=== PATIENT | male | born 1940 | race Asian ===

== ENCOUNTER 2018-04-04 16:48 | Observation (INO) | payer MEDICARE, BC ==
--- NOTE | 2018-04-04 17:20 | RADIOLOGY REPORT (SQ) ---
EXAM DESCRIPTION: CT HEAD WITHOUT COMPLETED DATE/TIME: 04/04/2018 5:06 pm REASON FOR STUDY: Stroke-like symptoms COMPARISON: 2012. TECHNIQUE: Axial images acquired through the brain without intravenous contrast. Images reviewed wi th bone, brain and subdural windows. Additional sagittal and coronal reconstructions were generated. Images stored on PACS. All CT scanners at this facility use dose modulation, iterative reconstruction, and/or weight based d osing when appropriate to reduce radiation dose to as low as reasonably achievable (ALARA). [facility]: Dose Right [facility]: CareDose [facility]: Dose Right [facility]: Teradose 4D [facility]: Smart Technologies RADIATION DOSE: CT Rad equipment meets quality standard of care and radiation dose reduction techniq ues were employed. CTDIvol: 53.2 mGy. DLP: 1124 mGy-cm. mGy. LIMITATIONS: None. FINDINGS: VENTRICLES: Slight prominence, chronic. No developing or progressive hydrocephalus. CEREBRUM: No masses. No hemorrhage. No midline shift. No evidence for acute infarction. Minimal sm all vessel disease, chronic. CEREBELLUM: No masses. No hemorrhage. No alteration of density. No evidence for acute infarction. EXTRAAXIAL SPACES: No fluid collections. No masses. ORBITS AND GLOBE: No intra- or extraconal masses. Normal contour of globe without masses. CALVARIUM: No fracture. PARANASAL SINUSES: No fluid levels. Mucosal thickening, most notable in the right maxillary sinus. SOFT TISSUES: No mass or hematoma. OTHER: No other significant finding. IMPRESSION: 1. No acute intracranial abnormality. 2. Mild chronic changes as above. EVIDENCE OF ACUTE STROKE: NO. Pertinent positive or negative findings of the imaging study reported as a CRITICAL EXAM to DEREK Matos NURSE at17:14 on 04/04/2018. Category of Critical Exam: Stroke alert COMMENT: Quality ID # [id number]: Final reports with documentation of one or more dose reduction techniques (e.g., Automated exposure control, adjustment of the mA and/or kV according to patient size, use of iterative reconstruction technique) TECHNICAL DOCUMENTATION: JOB ID: [id number] [employer]- All Rights Reserved Reading location - IP/workstation name: [email or web address]
--- NOTE | 2018-04-04 17:22 | RADIOLOGY REPORT (SQ) ---
EXAM DESCRIPTION: CHEST SINGLE VIEW COMPLETED DATE/TIME: 04/04/2018 5:04 pm REASON FOR STUDY: Stroke-like symptoms COMPARISON: 2012. NUMBER OF VIEWS: One view. TECHNIQUE: Single frontal radiographic view of the chest acquired. LIMITATIONS: None. FINDINGS: LUNGS AND PLEURA: No opacities, masses or pneumothorax. No pleural effusion. MEDIASTINUM AND HILAR STRUCTURES: No masses. Contour normal. HEART AND VASCULAR STRUCTURES: Heart normal in size. Normal vasculature. BONES: No acute findings. HARDWARE: None in the chest. OTHER: No other significant finding. IMPRESSION: NO SIGNIFICANT RADIOGRAPHIC FINDING IN THE CHEST. TECHNICAL DOCUMENTATION: JOB ID: [id number] [employer]- All Rights Reserved Reading location - IP/workstation name: [email or web address]
--- NOTE | 2018-04-04 17:27 | ER Document Report ---
ED Medical Screen (RME) - General Chief Complaint: S/S of Possible Stroke Stated Complaint: IRREGULAR HEARTBEAT Time Seen by Provider: 04/04/18 17:24 TRAVEL OUTSIDE OF THE [place] IN LAST 30 DAYS: No - HPI Notes: 04/04/18 17:25 Patient with a history of stroke irregular heartbeat takes Eliquis as needed whenever he has an irregular heartbeats that this afternoon felt palpitations took Eliquis started having hemianopsia of the left states resolved approximately 1 hour after taking Eliquis. Patient was seen by Dr. 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 Patient does have slurred speech from his previous stroke family at bedside states speech today is baseline. - Related Data Allergies/Adverse Reactions: No Known Drug Allergies Allergy (Verified 12/19/12 22:58) Past Medical History - Past Medical History Cardiac Medical History: Reports: Hx Atrial Fibrillation, Hx Hypertension Endocrine Medical History: Denies: Hx Diabetes Mellitus Type 1, Hx Diabetes Mellitus Type 2 Review of Systems - Review of Systems Constitutional: Other - Hemianopsia Physical Exam - Vital signs Vitals: Temp Pulse Resp BP Pulse Ox 98.8 F 80 16 135/90 H 97 04/04/18 16:58 04/04/18 16:58 04/04/18 16:58 04/04/18 16:58 04/04/18 16:58 - Neurological Neuro grossly intact: Yes Cognition: Normal Orientation: AAOx4 Devi Coma Scale Eye Opening: Spontaneous Devi Coma Scale Verbal: Oriented [place] Coma Scale Motor: Obeys Commands Devi Coma Scale Total: 15 Speech: Other - Slight slurring speech normal per family no abnormality Cranial nerves: Normal Cerebellar coordination: Normal Additional motor exam normals: 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 Slurred speech is chronic and stable according to family members at bedside. There is no facial asymmetry. There is no hemianopsia at this time. Equal strength left and right upper and lower extremities. - Vital Signs Vital signs: Temp Pulse Resp BP Pulse Ox 98.8 F 80 16 135/90 H 97 04/04/18 16:58 04/04/18 16:58 04/04/18 16:58 04/04/18 16:58 04/04/18 16:58 Doctor's Discharge - Discharge Referrals: HARRISON ANDERSON MD [Primary Care Provider] - Follow up as needed
[2018-04-04 17:31] LABS: ABSOLUTE BASOPHILS # (AUTO) 0.1 10^3/uL (0.0-0.2); ABSOLUTE EOSINOPHILS # (AUTO) 0.3 10^3/uL (0.0-0.6); ABSOLUTE MONOCYTES (AUTO) 0.7 10^3/uL (0.1-1.4); ABSOLUTE NEUT (AUTO) 5.6 10^3/uL (1.7-8.2); BASOPHILS % (AUTO) 0.9 % (0-2); EOSINOPHILS % (AUTO) 2.7 % (0-6); HEMATOCRIT 49.2 % (37.9-51.0); HEMOGLOBIN 16.9 g/dL (13.5-17.0); LYMPHOCYTES % (AUTO) 31.2 % (13-45); MEAN CORPUSCULAR HEMOGLOBIN 34.5 pg (27.0-33.4); MEAN CORPUSCULAR HGB CONC 34.5 g/dL (32.0-36.0); MEAN CORPUSCULAR VOLUME 100 fl (80-97); PLATELET COUNT 282 10^3/uL (150-450); RED BLOOD COUNT 4.92 10^6/uL (4.35-5.55); RED CELL DISTRIBUTION WIDTH 12.4 % (11.5-14.0); SEGMENTED NEUTROPHILS % (AUTO) 58.2 % (42-78); TOTAL CELLS COUNTED % (AUTO) 100 %; WHITE BLOOD COUNT 9.6 10^3/uL (4.0-10.5)
[2018-04-04 17:35] LABS: PROTHROMBIN TIME 13.7 SEC (11.4-15.4)
[2018-04-04 17:36] LABS: PARTIAL THROMBOPLASTIN TIME 34.4 SEC (23.5-35.8)
[2018-04-04 18:09] LABS: CREATINE KINASE MB 0.56 ng/mL (<4.55)
[2018-04-04 18:12] LABS: TROPONIN I < 0.012 ng/mL
--- NOTE | 2018-04-04 18:21 | ER Document Report ---
ED Neuro Symptoms/Deficit - General Chief Complaint: S/S of Possible Stroke Stated Complaint: IRREGULAR HEARTBEAT Time Seen by Provider: 04/04/18 17:24 Mode of Arrival: Ambulatory Information source: Patient Notes: Patient said at around 1230 this afternoon, while he was taking out the trash from his home, he noticed he could not see from the lateral upper part of the left eye. When he arrived in his house he took 5 mg of Eliquis. After around 2 hours as his symptoms completely resolved. He called his scagliola mechanic who told him to go to the emergency room. Currently patient is still asymptomatic in the emergency room. He denies any medical history apart from stroke 5 years ago. He said he is allergic to aspirin. TRAVEL OUTSIDE OF THE [place] IN LAST 30 DAYS: No - HPI Patient complains to provider of: Vision Changes Onset: This afternoon Awoke with symptoms: No Symptoms are: Intermittent episodes Duration: Gone now Quality of pain: No pain Severity: Mild Pain Level: 2 Context: None Loss of consciousness: No loss of consciousness Was STROKE ALERT Called: No Baseline Cognitive: Alert, oriented X 3 Baseline Gait: Walks w/o assistance Alert To: Name/Voice Patient Orientation: Person, Place, Time, Events Vision problem/glaucoma: Yes Associated symptoms: None Similar symptoms previously: No Recently seen / treated by doctor: No - Related Data Allergies/Adverse Reactions: aspirin Allergy (Verified 04/04/18 17:33) Anaphylaxis Penicillins Allergy (Verified 04/04/18 22:44) Anaphylaxis venom-honey bee Allergy (Verified 04/04/18 22:44) Anaphylaxis Past Medical History - Social History Smoking Status: Current Every Day Smoker Chew tobacco use (# tins/day): No Frequency of alcohol use: Occasional Drug Abuse: None Family History: Other - unable to obtain at this time Patient has suicidal ideation: No Patient has homicidal ideation: No - Past Medical History Cardiac Medical History: Reports: Hx Atrial Fibrillation, Hx Hypertension Endocrine Medical History: Denies: Hx Diabetes Mellitus Type 1, Hx Diabetes Mellitus Type 2 Renal/ Medical History: Denies: Hx Peritoneal Dialysis Review of Systems - Review of Systems Constitutional: denies: Chills, Fever EENT: No symptoms reported Cardiovascular: denies: Chest pain, Palpitations Respiratory: No symptoms reported Gastrointestinal: No symptoms reported Genitourinary: No symptoms reported Male Genitourinary: No symptoms reported Musculoskeletal: No symptoms reported Skin: No symptoms reported Hematologic/Lymphatic: No symptoms reported Neurological/Psychological: No symptoms reported -: Yes All other systems reviewed and negative Physical Exam - Vital signs Vitals: Temp Pulse Resp BP Pulse Ox 98.8 F 80 16 135/90 H 97 04/04/18 16:58 04/04/18 16:58 04/04/18 16:58 04/04/18 16:58 04/04/18 16:58 - General General appearance: Appears well, Alert In distress: None - HEENT Head: Normocephalic, Atraumatic Eyes: Normal Pupils: PERRL - Respiratory Respiratory status: No respiratory distress Chest status: Nontender Breath sounds: Normal Chest palpation: Normal - Cardiovascular Rhythm: Regular Heart sounds: Normal auscultation Murmur: No - Abdominal Inspection: Normal Distension: No distension Bowel sounds: Normal Tenderness: Nontender Organomegaly: No organomegaly - Back Back: Normal, Nontender - Extremities General upper extremity: Normal inspection, Nontender, Normal color, Normal ROM , Normal temperature General lower extremity: Normal inspection, Nontender, Normal color, Normal ROM , Normal temperature, Normal weight bearing. No: Patricio's sign - Neurological Neuro grossly intact: Yes Cognition: Normal Orientation: AAOx4 [place] Coma Scale Eye Opening: Spontaneous Devi Coma Scale Verbal: Oriented Devi Coma Scale Motor: Obeys Commands Devi Coma Scale Total: 15 Speech: Normal Motor strength normal: LUE, RUE, LLE, RLE Sensory: Normal - Psychological Associated symptoms: Normal affect, Normal mood - Skin Skin Temperature: Warm Skin Moisture: Dry Skin Color: Normal Course - Re-evaluation Re-evalutation: 04/04/18 19:34 I consulted the hospitalist supervisor home energy consultant Dr. Mckeon. He will admit patient to the hospital for further evaluation and management. - Vital Signs Vital signs: Temp Pulse Resp BP Pulse Ox 98.4 F 75 14 152/100 H 100 04/04/18 17:31 04/04/18 18:00 04/04/18 18:00 04/04/18 18:00 04/04/18 18:00 - Laboratory Result Diagrams: 04/04/18 17:15 04/04/18 18:45 Laboratory results interpreted by me: 04/04/18 17:15 MCV 100 H MCH 34.5 H - Diagnostic Test Radiology reviewed: Image reviewed, Reports reviewed - EKG Interpretation by Me EKG shows normal: Sinus rhythm Rate: Normal - 79 P Waves: LAE Heart block present: 1st Degree When compared to previous EKG there are: Changes noted Additional EKG results interpreted by me: 04/04/18 18:[address] and T wave changes. No STEMI. - Transfer of Care Notes: 04/04/18 18:20 TIA. Hypertension. Critical Care Note - Critical Care Note Total time excluding time spent on procedures (mins): 40 ED Alteplase Inc/Exc Criteria - Date/Time patient last known well: Date/Time: 04/04/2018 at 12:30. - Inclusion Criteria: 1: Patient presented to ED within 3 hours of acute ischemic stroke symptom onset ? -: No 2: Did baseline CT exclude intracranial hemorrhage and/or other risk factors? -: Yes 3: Is the age of the patient 18 years of age or greater? -: Yes : If any of the above questions are answered "NO" then stop, patient is not a candidate for Alteplase, : If all of the above questions are answered "YES" then continue with Exclusion Criteria. - Exclusion Criteria: 1: Is there evidence of intracranial hemorrhage on baseline CT? -: No 2: Is there suspicion of subarachnoid hemorrhage (even if CT negative)? -: No 3: Is there a history of serious head trauma, recent previous stroke or PA within 3 months? -: No 4: Does the patient have a clinical presentation consistent with PA or post-PA pericarditis? -: No 5: Is there history of intracranial hemorrhage? -: No 6: On repeated measurement is Systolic BP greater than 185mmHg or Diastolic BP greater that 110 mmHg and is aggressive treatment needed to reduce blood pressure to these limits (e.g. constant infusion of an anti-hypertensive)? -: No 7: Did the patient awake with stroke symptoms? -: No 8: Has the patient had a lumbar puncture or an arterial puncture at a non- compressile site within 7 days? -: No 9: With in the last 14 days did the patient have surgery or major trauma? -: No 10: Is the patient or less than 2 weeks? -: No 11: Was there any active bleeding or acute trauma? -: No 12: Does the patient have intracranial neoplasm, arteriovenous malformation or aneurysm? -: No 13: Does the patient have abnormal glucose (less than 50 or greater than 400mg/ dl)? Record glucose in Comment. -: No 14: Patient has rapidly improving symptoms at the time Alteplase is to be Administered. -: Yes 15: Does the patient have any risks for bleeding, including but not limited to: a.: Current use of Coumadin with PT greater than 15 seconds or INR greater than 1.7. b.: Current use of Pradaxa (Dabigatran). c.: Heparin administereed within the past 48 hours and PTT elevated. d.: Platelet count less than 100,000/mm. e.: Major surgery or serious trauma within 14 days. f.: Gastrointestinal or gynecological urinary bleeding within 14 days. g.: Myocardial Infarction (PA) within 3 months. : If the answer to any of the above questions is "YES" then stop, the patient is not a candidate for Alteplase. : If the answer to all of the above questions is "NO" then the patient may be eligible for the Administration of Alteplase. : If the patient is noted to have seizure activity at onset of Stroke symptoms; Consult Neurologist for further evaluation. - The patient is: -: Included and is eligible to receive Alteplase. *Initiate bed placement at higher level of care* --: No Reviewed risks & benefits of thrombolytic therapy: I have reviewed the risks and benefits of thrombolytic therapy with the patient and/or his/her family. -: Excluded and not eligible to receive Alteplase for the above exclusions. --: Yes -: Excluded and not eligible to receive Alteplase for other reasons (specify in comments): --: Yes - TIA - Diagnosis of TIA: -: Patient presented with transient symptoms that are now resolved and no other neurologic findings are currently present. List symptoms in comments. -: Patient is NOT a candidate for tPA. -: ____(put name in comment) has been consulted for admission and continued evaluation of risk factor assessment. ED NIH Stroke Scale - NIH Stroke Scale When completed:: Before Alteplase *: 1. NIH scale should be completed with appropriate accompanying assessment tools. *: 2. The NIH should reflect what the patient is capable of doing and should not be coached by the clinician. 1a. Level of Consciousness: 0=Alert;keenly responsive -: 1=Drowsy -: 2=Obtunded -: 3=Coma/unresponsive or reflex to noxious stimuli. 1a. Responses: 0 1b. Orientation Questions: a. What month is it? -: b. How old are you? -: 0=Answers both questions correctly. -: 1=Answers one question correctly or patient is intubated or has orotracheal trauma. -: 2=Answers neither question correctly. 1b. Responses: 0 1c. Response to commands: a. Open and close eyes? -: b. Healthcare Economics Manager and release hand? -: Credit is given despite weakness. Demonstration of task is permitted. Substitute command if hands cannot be used. -: 0=Performs both tasks correctly -: 1=Performs one task correctly -: 2=Performs neither task correctly 1c. Responses: 0 2. Gaze: Establish eye contact and instruct patient to "Follow my finger" -: 0=Normal -: 1=Partial gaze palsy. Gaze is abnormal in one or both eyes, but where forced deviation or total gaze paresis is not present. -: 2=Forced deviation or total gaze paresis. 2. Responses: 0 3. Visual Galan: Sees fingers in all four quadrants. -: 0=No visual loss. -: 1=Partial hemianopsia. -: 2=Complete hemianopsia. -: 3=Bilateral hemianopsia (including Cortical blindness) 3. Responses: 0 4. Facial Movement: Instruct patient to: -: a. Show me your teeth -: b. Raise your eyebrows -: c. Close your eyes -: d. Smile -: 0=Normal symmetrical movement -: 1=Minor paralysis (flattened nasolabial fold, asymmetry on smiling). -: 2=Partial paralysis (total or near total paralysis of lower face). -: 3=Complete paralysis of upper and lower face 4. Responses: 0 5. Motor functions (left arm): Alternate sides and extend each arm with palms down (90 degrees if sitting or 45 degrees for supine). -: 0=No drift;limb holds for full 10 seconds. -: 1=Drift; limb holds but drifts down before full 10 seconds, but does not hit bed. -: 2=Some effort against gravity; limb cannot get to or maintain position. -: 3=No effort against gravity; limb falls. -: 4=No movement. -: UN=Amputation, joint fusion, explain in comments. 5. Responses (left arm): 0 5. Motor Functions (right arm): Alternate sides and extend each arm with palms down (90 degrees if sitting or 45 degrees for supine). -: 0=No drift;limb holds for full 10 seconds. -: 1=Drift; limb holds but drifts down before full 10 seconds, but does not hit bed. -: 2=Some effort against gravity; limb cannot get to or maintain position. -: 3=No effort against gravity; limb falls. -: 4=No movement. -: UN=Amputation, joint fusion, explain in comments. 5. Responses (right arm): 0 6. Motor Functions (left leg): With patient lying supine, alternate sides and extend each leg (30 degrees always while supine). -: 0=No drift, leg holds position for full 5 seconds -: 1=Drift; leg falls before full 5 seconds but does not hit bed. -: 2=Some effort against gravity, leg falls to bed but some effort against gravity. -: 3=No effort against gravity, leg falls to bed immediately. -: 4=No movement. -: UN=Amputation, joint fusion; explain in comments. 6. Responses (left leg): 0 6. Motor Functions (right leg): With patient lying supine, alternate sides and extend each leg (30 degrees always while supine). -: 0=No drift, leg holds position for full 5 seconds -: 1=Drift; leg falls before full 5 seconds but does not hit bed. -: 2=Some effort against gravity, leg falls to bed but some effort against gravity. -: 3=No effort against gravity, leg falls to bed immediately. -: 4=No movement. -: UN=Amputation, joint fusion; explain in comments. 6. Responses (right leg): 0 7. Limb Ataxia: With eyes open instruct patient to: -: a. "Touch your finger to your nose". -: b. "Touch your heel to your jones" -: 0=Absent -: 1=Present in one limb. -: 2=Present in two limbs. -: UN=Amputation or joint fusion; explain in comments. 7. Responses: 0 8. Sensory: Test sensation using pinprick or noxious stimuli. Test as many body parts as possible. -: 0=Normal;no sensory loss -: 1=Mile to moderate sensory loss (patient feels pin prick but is less sharp on affected side). -: 2=Severe or total sensory loss. 8. Responses: 0 9. Best Language: Instruct patient to: -: a. "Describe what you see in this picture." -: b. "Name the items in this picture." -: c. "Read these sentences." -: 0=No aphasia, normal -: 1=Mild to moderate aphasia. -: 2=Severe aphasia -: 3=Mute, global aphasia, no usable speech or auditory comprehension. 9. Responses: 0 10. Articulation, Dysarthia: Instruct patient to: -: "Read these words" or "Repeat these words" -: 0=Normal -: 1=Mild to moderate; patient may slur some words but can be understood without difficulty. -: 2=Severe; patients speech so slurred as to be unintelligible in the absence of dysphasia. -: UN=Intubated or other physical barrier, explain in comments. 10. Responses: 0 11. Extinction or inattention: 0=No abnormality -: 1= Visual, tactile, auditory, spatial, or personal inattention or extinction to bilateral simulation in one or the sensory modalities. -: 2=Profound walter-inattention or walter-inattention to more than one modality; does not recognize own hand. 11. Responses: 0 Total Score: 0 Discharge - Discharge Clinical Impression: TIA (transient ischemic attack) Hypertension Qualifiers: Hypertension type: unspecified Qualified Code(s): I10 - Essential (primary) hypertension Condition: Stable Disposition: ADMITTED INPATIENT Admitting Provider: Dr Mckeon Unit Admitted: Telemetry
[2018-04-04] MEDS ORDERED: CLONIDINE HCL 0.1 MG TABLET PO ONE (18:40)
[2018-04-04 19:14] LABS: ALANINE AMINOTRANSFERASE 25 U/L (21-72); ALBUMIN 4.1 g/dL (3.5-5.0); ALKALINE PHOSPHATASE 86 U/L (38-126); ANION GAP 13 (5-19); ASPARTATE AMINO TRANSFERASE 23 U/L (17-59); BILIRUBIN,DIRECT 0.3 mg/dL (0.0-0.4); BILIRUBIN,TOTAL 0.3 mg/dL (0.2-1.3); BLOOD UREA NITROGEN 8 mg/dL (7-20); CALCIUM 9.2 mg/dL (8.4-10.2); CARBON DIOXIDE 24 mmol/L (22-30); CHLORIDE 106 mmol/L (98-107); CREATINE KINASE 78 U/L (55-170); GLUCOSE 101 mg/dL (75-110); POTASSIUM 4.4 mmol/L (3.6-5.0); SODIUM 143.3 mmol/L (137-145); TOTAL PROTEIN 7.4 g/dL (6.3-8.2)
[2018-04-04] MEDS ORDERED: ENOXAPARIN SODIUM INJ 40 MG/0.4 ML DISP.SYRIN SUBCUT ONE (21:00)
--- NOTE | 2018-04-04 21:21 | RADIOLOGY REPORT (SQ) ---
EXAM DESCRIPTION: MRI HEAD WITHOUT COMPLETED DATE/TIME: 04/04/2018 8:40 pm REASON FOR STUDY: Stroke workup COMPARISON: None. TECHNIQUE: Multiplanar imaging includes non-contrasted T1, T2, FLAIR, and diffusion with ADC map seq uences. Images stored on PACS. LIMITATIONS: None. FINDINGS: ANATOMY: No anomalies. Normal vascular flow voids. Pituitary fossa normal. CSF SPACES: Lateral ventricles are prominent. CEREBRUM: Mild cortical atrophy. There is no midline shift or mass effect. There is no hemorrhage. There are some small areas increased FLAIR and T2 signal in the periventricular region. POSTERIOR FOSSA: No signal alteration. No hemorrhage. No edema, masses or mass effect. Internal elif tory canals, cerebello-pontine angles, mastoids normal. DIFFUSION IMAGING: Negative for acute or sub-acute infarction. ORBITS: No masses. Globes normal. PARANASAL SINUSES: Mucous retention cysts in the right maxillary sinus. OTHER: No other significant finding. IMPRESSION: Involutional changes of aging with mild chronic microvascular ischemia and no acute intr acranial imaging findings. Right maxillary sinus disease. EVIDENCE OF ACUTE STROKE: NO. TECHNICAL DOCUMENTATION: JOB ID: [id number] [employer]- All Rights Reserved Reading location - IP/workstation name: [email or web address]
--- NOTE | 2018-04-04 21:24 | RADIOLOGY REPORT (SQ) ---
EXAM DESCRIPTION: MRA HEAD WITHOUT COMPLETED DATE/TIME: 04/04/2018 8:57 pm REASON FOR STUDY: Stroke workup COMPARISON: None. TECHNIQUE: Axial 3-D [id number] acquisition imaging performed through the brain in the area of t he la posta of [place]. Images reformatted using 3-D MIPS. LIMITATIONS: None. FINDINGS: SOURCE IMAGES: No unexpected findings on source images. No large masses. 3-D MIP: No aneurysm. No occlusions. No significant stenosis. OTHER: No other significant finding. IMPRESSION: NORMAL MRA OF THE MCGRATH OF CAR[place]OS. TECHNICAL DOCUMENTATION: JOB ID: [id number] [employer]- All Rights Reserved Reading location - IP/workstation name: [email or web address]
[2018-04-04] MEDS: ALPRAZOLAM 0.5 MG TABLET PO SCH (21:48)
[2018-04-04] MEDS ORDERED: MIRTAZAPINE 15 MG TABLET PO SCH (22:00)
--- NOTE | 2018-04-04 22:12 | EKG REPORT ---
SEVERITY:- ABNORMAL ECG - SINUS RHYTHM FIRST DEGREE AV BLOCK PROBABLE LEFT ATRIAL ABNORMALITY : Confirmed by: Chapo De Jesus 04-Apr-2018 22:12:22
[2018-04-05 05:50] LABS: ABSOLUTE BASOPHILS # (AUTO) 0.1 10^3/uL (0.0-0.2); ABSOLUTE EOSINOPHILS # (AUTO) 0.3 10^3/uL (0.0-0.6); ABSOLUTE LYMPHOCYTES (AUTO) 3.5 10^3/uL (0.5-4.7); ABSOLUTE MONOCYTES (AUTO) 0.8 10^3/uL (0.1-1.4); ABSOLUTE NEUT (AUTO) 4.8 10^3/uL (1.7-8.2); EOSINOPHILS % (AUTO) 3.4 % (0-6); HEMATOCRIT 49.8 % (37.9-51.0); LYMPHOCYTES % (AUTO) 36.8 % (13-45); MEAN CORPUSCULAR HGB CONC 34.1 g/dL (32.0-36.0); MEAN CORPUSCULAR VOLUME 100 fl (80-97); MONOCYTES % (AUTO) 8.6 % (3-13); PLATELET COUNT 253 10^3/uL (150-450); RED BLOOD COUNT 4.99 10^6/uL (4.35-5.55); RED CELL DISTRIBUTION WIDTH 12.7 % (11.5-14.0); SEGMENTED NEUTROPHILS % (AUTO) 50.2 % (42-78); TOTAL CELLS COUNTED % (AUTO) 100 %; WHITE BLOOD COUNT 9.5 10^3/uL (4.0-10.5)
--- NOTE | 2018-04-05 06:28 | PDOC H&P ---
History of Present Illness Admission Date/PCP: 04/04/18 19:34 EARNEST TABARES MD Patient complains of: Abnormal vision History of Present Illness: ROSALIE ASHFORD is a 77 year old male with a known past medical history of stroke 5 years ago with residual facial droop and slurred speech presenting to the emergency department secondary to abnormal vision. States while he was resting comfortably at home he started having inability to see peripherally out of his left eye. States at that time he took a friend's 5 mg of Eliquis and went back to bed. 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 States his vision has returned to its baseline. Head CT in ER was negative. Patient was found to have elevated blood pressure upon arrival as well. Past Medical History Cardiac Medical History: Reports: Atrial Fibrillation, Hypertension Neurological Medical History: Reports: Ischemic CVA Endocrine Medical History: Denies: Diabetes Mellitus Type 1, Diabetes Mellitus Type 2 Psychiatric Medical History: Denies: Depression Past Surgical History Past Surgical History: Reports: None Social History Information Source: Patient Lives with: Family Smoking Status: Former Smoker Frequency of Alcohol Use: Occasional Hx Recreational Drug Use: No Drugs: None Hx Prescription Drug Abuse: No - Advance Directive Resuscitation Status: Full Code Family History Family History: None, Other - unable to obtain at this time Parental Family History Reviewed: Yes Children Family History Reviewed: Yes Sibling(s) Family History Reviewed.: Yes Medication/Allergy Home Medications: Alendronate Sodium [Fosamax 70 mg Tablet] 70 mg PO GARCIAS@1000 04/04/18 Alprazolam [Xanax] 1 mg PO BID 04/04/18 Cholecalciferol (Vitamin D3) [Vitamin D3 2000 unit Tablet] 2,000 unit PO Q2DAYS 04/04/18 Flecainide Acetate 150 mg PO BID 04/04/18 Mirtazapine [Remeron 15 mg Tablet] 15 mg PO QHS 04/04/18 Allergies/Adverse Reactions: aspirin Allergy (Verified 04/04/18 17:33) Anaphylaxis Penicillins Allergy (Verified 04/04/18 22:44) Anaphylaxis venom-honey bee Allergy (Verified 04/04/18 22:44) Anaphylaxis Review of Systems Constitutional: PRESENT: as per HPI Eyes: PRESENT: visual disturbances Ears: ABSENT: hearing changes Cardiovascular: ABSENT: chest pain, orthropnea Gastrointestinal: ABSENT: abdominal pain Neurological: ABSENT: abnormal gait, confusion, focal weakness, numbness, weakness Physical Exam Vital Signs: Temp Pulse Resp BP Pulse Ox 98.0 F 57 L 19 94/54 L 98 04/05/18 03:22 04/05/18 04:00 04/05/18 04:00 04/05/18 04:00 04/05/18 04:00 Intake & Output 04/03/18 04/04/18 04/05/18 06:59 06:59 06:59 Intake Total 0 Output Total 400 Balance -400 Weight 66 kg General appearance: PRESENT: no acute distress, well-developed, well-nourished Head exam: PRESENT: atraumatic, normocephalic Eye exam: PRESENT: conjunctiva pink, EOMI, PERRLA. ABSENT: scleral icterus Ear exam: PRESENT: normal external ear exam Mouth exam: PRESENT: moist, tongue midline Neck exam: ABSENT: carotid bruit, JVD, lymphadenopathy, thyromegaly Respiratory exam: PRESENT: clear to auscultation adrianna. ABSENT: rales, rhonchi, wheezes Cardiovascular exam: PRESENT: RRR. ABSENT: diastolic murmur, rubs, systolic murmur Pulses: PRESENT: normal dorsalis pedis pul Vascular exam: PRESENT: normal capillary refill GI/Abdominal exam: PRESENT: normal bowel sounds, soft. ABSENT: distended, guarding, mass, organolmegaly, rebound, tenderness Rectal exam: PRESENT: deferred Extremities exam: PRESENT: full ROM. ABSENT: calf tenderness, clubbing, pedal edema Neurological exam: PRESENT: alert, awake, oriented to person, oriented to place , oriented to time, oriented to situation, CN II-XII grossly intact. ABSENT: motor sensory deficit Psychiatric exam: PRESENT: appropriate affect, normal mood. ABSENT: homicidal ideation, suicidal ideation Skin exam: PRESENT: dry, intact, warm. ABSENT: cyanosis, rash Results Laboratory Results: 04/05/18 03:46 04/05/18 03:46 04/05/18 04/05/18 03:46 03:46 WBC 9.5 RBC 4.99 Hgb 17.0 Hct 49.8 MCV 100 H MCH 34.0 H MCHC 34.1 RDW 12.7 Plt Count 253 Seg Neutrophils % 50.2 Lymphocytes % 36.8 Monocytes % 8.6 Eosinophils % 3.4 Basophils % 1.0 Absolute Neutrophils 4.8 Absolute Lymphocytes 3.5 Absolute Monocytes 0.8 Absolute Eosinophils 0.3 Absolute Basophils 0.1 Sodium Cancelled Potassium Cancelled Chloride Cancelled Carbon Dioxide Cancelled Anion Gap Cancelled BUN Cancelled Creatinine Cancelled Est GFR ( Amer) Cancelled Est GFR (Non-Af Amer) Cancelled Glucose Cancelled Calcium Cancelled Triglycerides Cancelled Cholesterol Cancelled LDL Cholesterol Direct Cancelled VLDL Cholesterol Cancelled HDL Cholesterol Cancelled Impressions: Head MRI 04/04/18 00:00 IMPRESSION: Involutional changes of aging with mild chronic microvascular ischemia and no acute intracranial imaging findings. Right maxillary sinus disease. EVIDENCE OF ACUTE STROKE: NO. Chest X-Ray 04/04/18 16:57 IMPRESSION: NO SIGNIFICANT RADIOGRAPHIC FINDING IN THE CHEST. Head CT 04/04/18 16:57 IMPRESSION: 1. No acute intracranial abnormality. 2. Mild chronic changes as above. EVIDENCE OF ACUTE STROKE: NO. Pertinent positive or negative findings of the imaging study reported as a CRITICAL EXAM to ER CHARGE NURSE at17:14 on 04/04/2018. Category of Critical Exam: Stroke alert Brain MRI with MRA 04/04/18 19:22 IMPRESSION: NORMAL MRA OF THE [place]. Assessment & Plan - Diagnosis (1) TIA (transient ischemic attack) Is this a current diagnosis for this admission?: Yes Plan: To be admitted to telemetry for further monitoring and evaluation. Head CT negative in ER, NIH scale 0. Patient appears to be alert oriented 3 with no focal deficit at this time. Brain MRI with MRA pending for this a.m. Physical therapy, occupational therapy pending. (2) Hypertension Qualifiers: Hypertension type: unspecified Qualified Code(s): I10 - Essential (primary ) hypertension Is this a current diagnosis for this admission?: Yes Plan: Continue patient's home medications and monitor closely. Will adjust accordingly. - Time Time Spent: 30 to 50 Minutes Medications reviewed and adjusted accordingly: Yes Anticipated discharge: Home
[2018-04-05 08:58] LABS: ANION GAP 12 (5-19); BLOOD UREA NITROGEN 8 mg/dL (7-20); CARBON DIOXIDE 24 mmol/L (22-30); CHLORIDE 107 mmol/L (98-107); GLUCOSE 103 mg/dL (75-110); POTASSIUM 4.2 mmol/L (3.6-5.0); SODIUM 143.3 mmol/L (137-145); TRIGLYCERIDES 350 mg/dL (<150)
[2018-04-05 09:09] LABS: DIRECT LDL 74 mg/dL (<100)
[2018-04-05] MEDS ORDERED: PANTOPRAZOLE SODIUM 40 MG VIAL IV SCH (10:00)
[2018-04-05] MEDS ORDERED: ENOXAPARIN SODIUM INJ 40 MG/0.4 ML DISP.SYRIN SUBCUT SCH (10:00)
[2018-04-05] MEDS: ALPRAZOLAM 0.5 MG TABLET PO SCH (10:32)
[2018-04-05] MEDS ORDERED: CLOPIDOGREL BISULFATE 75 MG TABLET PO SCH (11:00)
[2018-04-05] MEDS ORDERED: FENOFIBRATE NANOCRYSTALLIZED 145 MG TABLET PO SCH (11:30)
[2018-04-05 13:53] VITALS: BP 128/83
--- NOTE | 2018-04-05 14:21 | PDOC DISCHARGE SUMMARY ---
General - Admit/Disc Date/PCP Admission Date/Primary Care Provider: 04/04/18 19:34 EARNEST TABARES MD Discharge Date: 04/05/18 - Discharge Diagnosis (1) TIA (transient ischemic attack) Is this a current diagnosis for this admission?: Yes (2) Atrial fibrillation Is this a current diagnosis for this admission?: Yes (3) Dyslipidemia Is this a current diagnosis for this admission?: Yes (4) Old cerebrovascular accident without late effect Is this a current diagnosis for this admission?: Yes (5) Hypertension Is this a current diagnosis for this admission?: Yes - Additional Information Resuscitation Status: Full Code Discharge Diet: As Tolerated, Cardiac Discharge Activity: Activity As Tolerated Prescriptions: Atorvastatin Calcium [Lipitor 20 mg Tablet] 20 mg PO QHS #30 tablet Clopidogrel Bisulfate [Plavix 75 mg Tablet] 75 mg PO DAILY #30 tablet Fenofibrate Nanocrystallized [Tricor 145 mg Tablet] 145 mg PO DAILY #30 tablet Home Medications: Alendronate Sodium [Fosamax 70 mg Tablet] 70 mg PO GARCIAS@1000 04/04/18 Alprazolam [Xanax] 1 mg PO BID 04/04/18 Cholecalciferol (Vitamin D3) [Vitamin D3 2000 unit Tablet] 2,000 unit PO Q2DAYS 04/04/18 Flecainide Acetate 150 mg PO BID 04/04/18 Mirtazapine [Remeron 15 mg Tablet] 15 mg PO QHS 04/04/18 Atorvastatin Calcium [Lipitor 20 mg Tablet] 20 mg PO QHS #30 tablet 04/05/18 Clopidogrel Bisulfate [Plavix 75 mg Tablet] 75 mg PO DAILY #30 tablet 04/05/18 Fenofibrate Nanocrystallized [Tricor 145 mg Tablet] 145 mg PO DAILY #30 tablet 04/05/18 History of Present Illness History of Present Illness: ROSALIE ASHFORD is a 77 year old male with a known past medical history of stroke 5 years ago with residual facial droop and slurred speech presenting to the emergency department secondary to abnormal vision. States while he was resting comfortably at home he started having inability to see peripherally out of his left eye. States at that time he took a friend's 5 mg of Eliquis and went back to bed. 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 States his vision has returned to its baseline. Head CT in ER was negative. Patient was found to have elevated blood pressure upon arrival as well. Hospital Course Hospital Course: this patient was admitted overnight with complaints of double vision which he says has resolved. Patient has a history of CVA about 5 years ago. He has some residual facial droop and slurred speech. Apparently also has a history of atrial fibrillation although he has been in sinus rhythm since been in hospital for a few hours. With his symptoms resolved with negative MRI and carotid studies patient is been discharged home for outpatient follow-up with Dr. France to obtain an echo as well as telemetry or Holter monitoring. Patient was seen by Dr. France in hospital and he is aware of this plans. Physical Exam Vital Signs: Temp Pulse Resp BP Pulse Ox 98.2 F 63 20 128/83 H 100 04/05/18 13:51 04/05/18 13:51 04/05/18 13:51 04/05/18 13:51 04/05/18 13:51 Intake & Output 04/04/18 04/05/18 04/06/18 06:59 06:59 06:59 Intake Total 0 504 Output Total 400 Balance -400 504 Weight 66 kg General appearance: PRESENT: no acute distress, well-nourished Head exam: PRESENT: atraumatic, normocephalic Eye exam: PRESENT: conjunctiva pink, EOMI, PERRLA. ABSENT: scleral icterus Ear exam: PRESENT: normal external ear exam Mouth exam: PRESENT: moist, tongue midline Neck exam: ABSENT: carotid bruit, JVD, lymphadenopathy, thyromegaly Respiratory exam: PRESENT: clear to auscultation adrianna. ABSENT: rales, rhonchi, wheezes Cardiovascular exam: PRESENT: RRR. ABSENT: diastolic murmur, rubs, systolic murmur Pulses: PRESENT: normal dorsalis pedis pul Vascular exam: PRESENT: normal capillary refill GI/Abdominal exam: PRESENT: normal bowel sounds, soft. ABSENT: distended, guarding, mass, organolmegaly, rebound, tenderness Rectal exam: PRESENT: deferred Extremities exam: PRESENT: full ROM. ABSENT: calf tenderness, clubbing, pedal edema Neurological exam: PRESENT: alert, awake, oriented to person, oriented to place , oriented to time, oriented to situation, CN II-XII grossly intact Psychiatric exam: PRESENT: appropriate affect, normal mood. ABSENT: homicidal ideation, suicidal ideation Skin exam: PRESENT: dry, intact, warm. ABSENT: cyanosis, rash Results Laboratory Results: 04/05/18 03:46 04/05/18 08:07 04/05/18 04/05/18 04/05/18 03:46 03:46 08:07 WBC 9.5 RBC 4.99 Hgb 17.0 Hct 49.8 MCV 100 H MCH 34.0 H MCHC 34.1 RDW 12.7 Plt Count 253 Seg Neutrophils % 50.2 Lymphocytes % 36.8 Monocytes % 8.6 Eosinophils % 3.4 Basophils % 1.0 Absolute Neutrophils 4.8 Absolute Lymphocytes 3.5 Absolute Monocytes 0.8 Absolute Eosinophils 0.3 Absolute Basophils 0.1 Sodium Cancelled 143.3 Potassium Cancelled 4.2 Chloride Cancelled 107 Carbon Dioxide Cancelled 24 Anion Gap Cancelled 12 BUN Cancelled 8 Creatinine Cancelled 0.74 Est GFR ( Amer) Cancelled > 60 Est GFR (Non-Af Amer) Cancelled > 60 Glucose Cancelled 103 Calcium Cancelled 9.0 Triglycerides Cancelled 350 H Cholesterol Cancelled 159.40 LDL Cholesterol Direct Cancelled 74 VLDL Cholesterol Cancelled 70.0 H HDL Cholesterol Cancelled 33 L Impressions: Head MRI 04/04/18 00:00 IMPRESSION: Involutional changes of aging with mild chronic microvascular ischemia and no acute intracranial imaging findings. Right maxillary sinus disease. EVIDENCE OF ACUTE STROKE: NO. Chest X-Ray 04/04/18 16:57 IMPRESSION: NO SIGNIFICANT RADIOGRAPHIC FINDING IN THE CHEST. Head CT 04/04/18 16:57 IMPRESSION: 1. No acute intracranial abnormality. 2. Mild chronic changes as above. EVIDENCE OF ACUTE STROKE: NO. Pertinent positive or negative findings of the imaging study reported as a CRITICAL EXAM to ER CHARGE NURSE at17:14 on 04/04/2018. Category of Critical Exam: Stroke alert Brain MRI with MRA 04/04/18 19:22 IMPRESSION: NORMAL MRA OF THE [place]. Qualifiers - * PATIENT BEING DISCHARGED WITH ANY OF THE FOLLOWING DIAGNOSIS: No Plan Time Spent: Less than 30 Minutes
[2018-04-05] MEDS ORDERED: ATORVASTATIN CALCIUM 20 MG TABLET PO SCH (22:00)
[2018-04-06] MEDS ORDERED: (PENDING PHARMACY ID) (Cholecalciferol (Vitamin D3) [Vitamin D3 2000 Unit Tablet] 2,000 UN PO SCH (10:00)
[2018-04-06] MEDS ORDERED: CHOLECALCIFEROL (D3) 1,000 UNIT TABLET PO SCH (10:00)
[2018-04-09] MEDS ORDERED: (PENDING PHARMACY ID) (Alendronate Sodium [Fosamax 70 Mg Tablet] 70 MG) PO SCH (10:00)
== END 2018-04-05 14:10 | disposition home or self-care (01) ==
LOC: ER 16:48 → EH 19:34 → 3N 22:23
PROVIDERS: ADMIT Family Medicine; ATTEND Family Medicine
DX: G45.9 Transient cerebral ischemic attack, unspecified (principal); I48.91 Unspecified atrial fibrillation; E78.5 Hyperlipidemia, unspecified; I10 Essential (primary) hypertension; I44.0 Atrioventricular block, first degree; I69.392 Facial weakness following cerebral infarction; I69.328 Other speech and language deficits following cerebral infarction; Z87.891 Personal history of nicotine dependence; Z79.899 Other long term (current) drug therapy; Z88.6 Allergy status to analgesic agent
CPT/HCPCS: 93005; 99291; 36415 ×2; 82553; 82962; 82550; 85025 ×2; 85610; 85730; 80048; 80053; 84484; 83036; 80061; 70551; 70544; 71045; 70450; 93010; 97116; 97163; 97165; G0378 ×3; A9270 ×3; J1650 ×2; C9113; J3490 ×2; G8978; G8979; G8980; G8987; G8988; G8989; S0164